=== PATIENT | female | born 1980 | race Two or more races ===

== ENCOUNTER 2017-02-17 23:02 | Emergency (ER) | payer BC ==
[~2017-02-17] VITALS: Ht 157.5 cm; Wt 89.0 kg
[2017-02-17] MEDS ORDERED: MORPHINE SULFATE 4 MG/ML, 1ML ONE (23:28)
[2017-02-17] MEDS ORDERED: KETOROLAC 30 MG/1 ML ONE (23:28)
[2017-02-17] MEDS ORDERED: ONDANSETRON 2MG/ML, 2ML ONE (23:28)
[2017-02-17] MEDS ORDERED: CEFTRIAXONE PMX 1GM/50ML 50 ML IVPB ONE (23:30)
[2017-02-17] MEDS ORDERED: SODIUM CHLORIDE 0.9% 1,000ML IV ONE (23:30)
[2017-02-17] MEDS ORDERED: MORPHINE SULFATE 4 MG/ML, 1ML IVPush PRN (23:30)
[2017-02-17] MEDS ORDERED: ONDANSETRON 2MG/ML, 2ML IVPush ONE (23:30)
[2017-02-17] MEDS ORDERED: SODIUM CHLORIDE FLUSH 10ML SYR IVF ONE (23:30)
[2017-02-17] MEDS ORDERED: KETOROLAC 30 MG/1 ML IVPush ONE (23:30)
[2017-02-17 23:51] LABS: PATH.CAST-FLAG NOT PRESENT; SPERM-FLAG NOT PRESENT; SRC-FLAG NOT PRESENT; XTAL-FLAG NOT PRESENT; YLC-FLAG NOT PRESENT
[2017-02-17 23:54] LABS: HEMATOCRIT 40.8 % (34.6-47.8); HEMOGLOBIN 13.3 g/dL (11.7-16.4)
[2017-02-18] LABS: BLOOD UREA NITROGEN 11 mg/dL (7-18)
[2017-02-18] MEDS ORDERED: CEFTRIAXONE PMX 1GM/50ML 50 ML ONE (00:54)
[2017-02-18 01:16] VITALS: BP 117/89
== END 2017-02-18 01:18 | disposition home or self-care (01) ==
LOC: ED 23:59
DX: N10 Acute pyelonephritis (principal)
CPT/HCPCS: 36415; 76770; 80048; 81001; 82040; 83605; 84703; 85025; 87040; 87077; 87086; 96361; 96365; 96375; 99285; J0696; J1885; J2405; J7030; 87186